=== PATIENT | male | born 1980 | race Caucasian/White ===

== ENCOUNTER 2017-09-21 19:40 | Emergency (ER) | payer BC, OTHER ==
[~2017-09-21] VITALS: Ht 175.3 cm; Wt 80.0 kg
[~2017-09-21 19:40] MED LIST: BACTDS PO; CEPH-443 PO; FAMO-96 PO
[2017-09-21 19:43] VITALS: Ht 175.3 cm; Wt 80.0 kg
[2017-09-21] MEDS ORDERED: SOD CHLORIDE 0.9% 1,000 ML IV STA (21:34)
[2017-09-21] MEDS ORDERED: ASPIRIN 325 MG TAB PO STA (21:34)
--- NOTE | 2017-09-21 21:52 | ERD ---
ER Documentation Chief Complaint Chief Complaint chest pain w/ sob since 1 hour ago, cough HPI This 37-year-old male comes in with bilateral anterior sharp chest pain is now been going on for 2 hours. He also had some earlier today. Had a mild dry cough as well. Earlier today he was sweating as well. Stated this is happened a couple times. Several weeks ago he went to [facility] emergency [facility] with the same was discharged. Denies any fevers and chills. ROS All systems reviewed and are negative except as per history of present illness. Medications Home Meds Active Scripts Naproxen* (Naproxen*) 500 Mg Tablet, 500 MG PO BID Y for PAIN, #14 TAB Prov:GAVINLANDY 09/22/17 Ranitidine Hcl* (Zantac*) 150 Mg Tablet, 150 MG PO BID Y for EPIGASTRIC PAIN, # 30 TAB Prov:GAVINGARYLANDY DO 09/22/17 Sulfamethoxazole-Trimethoprim* (Bactrim* DS) 800-160 Mg Tab, 1 TAB PO BID for 7 Days, TAB Prov:YUMIKO JOSEPH PA-C 08/04/16 Cephalexin* (Keflex*) 500 Mg Capsule, 500 MG PO QID for 7 Days, CAP Prov:YUMIKO JOSEPH PA-C 08/04/16 Famotidine* (Pepcid*) 20 Mg Tablet, 20 MG PO BID for 10 Days, TAB Prov:AMNA ESTRELLA MD 06/19/16 Allergies Allergies: Coded Allergies: No Known Allergy (Unverified , 06/19/16) PMhx/Soc Medical and Surgical Hx: pt denies Medical Hx, pt denies Surgical Hx Anesthesia Reaction: No Hx Neurological Disorder: No Hx Respiratory Disorders: No Hx Cardiac Disorders: No Hx Psychiatric Problems: No Hx Miscellaneous Medical Probl: No Hx Alcohol Use: No (quit ) Hx Substance Use: Yes (meth/ denies at this time 09/21) Hx Tobacco Use: Yes (occassionally) Smoking Status: Current every day smoker Physical Exam Vitals Vital Signs Date Time Temp Pulse Resp B/P Pulse Ox O2 Delivery O2 Flow Rate FiO2 09/21/17 21:58 98.0 89 16 108/63 100 Nasal Cannula 2.0 09/21/17 21:35 Nasal Cannula 2 09/21/17 19:43 97.0 103 20 117/73 99 Physical Exam Const: [] Mild distress, appears somewhat uncomfortable Head: Atraumatic Eyes: Normal Conjunctiva ENT: Normal External Ears, Nose and Mouth. Neck: Full range of motion..~ No meningismus. Resp: Clear to auscultation bilaterally Cardio: Regular rate and rhythm, no murmurs Abd: Soft, non tender, non distended. Normal bowel sounds Skin: No petechiae or rashes Back: No midline or flank tenderness Ext: No cyanosis, or edema Neur: Awake and alert Psych: Normal Mood and Affect Result Diagram: 09/21/17214409/21/172144 Results 24 hrs Laboratory Tests Test 09/21/17 21:45 09/21/17 22:33 White Blood Count 9.510^3/ul Red Blood Count 3.9010^6/ul Hemoglobin 12.0g/dl Hematocrit 36.1% Mean Corpuscular Volume 92.6fl Mean Corpuscular Hemoglobin 30.8pg Mean Corpuscular Hemoglobin Concent 33.2g/dl Red Cell Distribution Width 13.2% Platelet Count 87655^3/UL Mean Platelet Volume 10.0fl Neutrophils % 51.1% Lymphocytes % 39.6% Monocytes % 6.4% Eosinophils % 2.0% Basophils % 0.4% Nucleated Red Blood Cells % 0.0/100WBC Neutrophils # 4.910^3/ul Lymphocytes # 3.810^3/ul Monocytes # 0.610^3/ul Eosinophils # 0.210^3/ul Basophils # 0.010^3/ul Nucleated Red Blood Cells # 0.010^3/ul Sodium Level 138mmol/L Potassium Level 3.7mmol/L Chloride Level 101mmol/L Carbon Dioxide Level 30mmol/L Anion Gap 11 Blood Urea Nitrogen 15mg/dl Creatinine 0.93mg/dl Glucose Level 114mg/dl Calcium Level 9.2mg/dl Troponin I < 0.012ng/ml B-Type Natriuretic Peptide 35PG/ML Bedside Urine pH (LAB) 5.5 Bedside Urine Protein (LAB) Negative Bedside Urine Glucose (UA) Negative Bedside Urine Ketones (LAB) Trace Bedside Urine Blood Negative Bedside Urine Nitrite (LAB) Negative Bedside Urine Leukocyte Esterase (L Negative Current Medications Medications (Trade) Dose Ordered Sig/Dilia Route PRN Reason Start Time Stop Time Status Last Admin Dose Admin Sodium Chloride (NS) 1,000 ml @ 1,000 mls/hr Q1H STAT IV 09/21/17 21:34 09/21/17 22:33 DC 09/21/17 21:50 Aspirin (Aspirin) 325 mg ONCE STAT PO 09/21/17 21:34 09/21/17 21:37 DC 09/21/17 21:50 Procedures/MDM 37-year-old male with chest pain and shortness of breath on a on and off. No signs of cardiac ischemia with completely normal EKG negative troponin after symptoms began this morning. Also no signs of infection or electrolyte abnormalities. Patient does have a normocytic anemia. Is hydrated liter normal saline and is feeling improved condition. I am going to discharge with primary care follow-up in the next 2-3 days and instructions to obtain outpatient echocardiogram to check his heart. I am also discharging him with Zantac and naproxen. Strict return precautions to the ER as well. Chest x-ray interpretation: I see no acute process, no widened mediastinum, pneumothorax, no fractures, no pulmonary edema no infiltrates. EKG interpretation: Normal sinus rhythm rate of 98, normal axis, no ST or T- wave changes concerning for acute ischemia, normal intervals. Normal EKG satellite project site monitor interpretation: Normal sinus rhythm without arrhythmia. Departure Diagnosis: Primary Impression: Chest pain Additional Impression: Normocytic anemia Condition: Stable GAVINGARYLANDY DO Sep 21, 2017 21:51
[2017-09-21 21:58] VITALS: BP 108/63; PULSE 89; RESP 16; TEMP 98
[2017-09-21 22:00] LABS: BASOPHILS % 0.4 % (0.0-2.0); EOSINOPHILS # 0.2 10^3/ul (0.0-0.5); HEMATOCRIT 36.1 % (42.0-52.0); LYMPHOCYTES # 3.8 10^3/ul (0.8-2.9); LYMPHOCYTES % 39.6 % (15.0-51.0); MEAN CORPUSCULAR HEMOGLOBIN 30.8 pg (29.0-33.0); MEAN CORPUSCULAR HGB CONC 33.2 g/dl (32.0-37.0); MEAN CORPUSCULAR VOLUME 92.6 fl (82.0-101.0); MONOCYTE # 0.6 10^3/ul (0.3-0.9); MONOCYTES % 6.4 % (0.0-11.0); NEUTROPHIL # 4.9 10^3/ul (1.6-7.5); NEUTROPHILS % 51.1 % (39.0-77.0); PLATELET COUNT 224 10^3/UL (140-415); RED CELL DISTRIBUTION WIDTH 13.2 % (11.5-14.5); WHITE BLOOD COUNT 9.5 10^3/ul (4.8-10.8)
[2017-09-21 22:25] LABS: ANION GAP 11 (8-16); BLOOD UREA NITROGEN 15 mg/dl (7-20); CALCIUM 9.2 mg/dl (8.4-10.2); CARBON DIOXIDE 30 mmol/L (21-31); CHLORIDE 101 mmol/L (97-110); CREATININE 0.93 mg/dl (0.61-1.24); GLUCOSE 114 mg/dl (70-220); POTASSIUM 3.7 mmol/L (3.5-5.1); SODIUM 138 mmol/L (135-144)
[2017-09-21 22:35] LABS: URINE BLOOD (Dip) POC Negative (NEGATIVE)
[2017-09-21 22:37] LABS: B-TYPE NATRIURETIC PEPTIDE 35 PG/ML (0-125); TROPONIN-I < 0.012 ng/ml (0.00-0.12)
--- NOTE | 2017-09-21 23:10 | RADRPT ---
PROCEDURE: XR Chest. CLINICAL INDICATION: Chest pain. TECHNIQUE: Portable AP semi erect view of the chest was obtained. COMPARISON: None. FINDINGS: The cardiomediastinal silhouette is within normal limits. The lungs are clear. There is no evidenc e for pleural effusion, pneumothorax or pulmonary vascular congestion. The osseous structures are i ntact with no evidence for acute abnormality. RPTAT:HJJR IMPRESSION: No evidence for acute intrathoracic pathology. Physician Peggy Date Time Electronically viewed and signed by Physician Peggy on 09/21/2017 23:09 JR/
[2017-09-22] MEDS ORDERED: RANI150T9 PO (00:36)
[2017-09-22] MEDS ORDERED: NAPR-688 PO (00:36)
== END 2017-09-22 01:12 | disposition home or self-care (01) ==
LOC: FTE 19:40
DX: R07.9 Chest pain, unspecified (principal); D64.9 Anemia, unspecified; F17.210 Nicotine dependence, cigarettes, uncomplicated
CPT/HCPCS: 36415; 71010; 80048; 81003; 83880; 84484; 85025; 93005; 99285; J7030

== ENCOUNTER 2018-03-08 19:06 | Emergency (ER) | END 2018-03-08 21:14 | disposition home or self-care (01) ==

== ENCOUNTER 2018-06-05 11:27 | Emergency (ER) | END 2018-06-06 10:01 ==